=== PATIENT | male | born 1965 | race Caucasian/White ===

== ENCOUNTER 2018-04-01 03:19 | Emergency (ER) | payer OTHER ==
[~2018-04-01] VITALS: Ht 180.3 cm; Wt 90.7 kg
[2018-04-01 03:24] VITALS: BP 159/84
[2018-04-01] MEDS: HYDROcodone/APAP 5/325 MG 1 TAB TAB PO ONE (03:41)
[2018-04-01 03:47] VITALS: BP 138/81
== END 2018-04-01 03:47 | disposition home or self-care (01) ==
LOC: MED 03:19
DX: S01.01XA Laceration without foreign body of scalp, initial encounter (principal); W22.8XXA Striking against or struck by other objects, initial encounter; Y93.89 Activity, other specified; Y92.89 Other specified places as the place of occurrence of the external cause; Y99.8 Other external cause status
CPT/HCPCS: 99283

== ENCOUNTER 2021-01-08 13:55 | Emergency (ER) | payer OTHER ==
[~2021-01-08] VITALS: Ht 180.3 cm; Wt 98.0 kg
[2021-01-08 13:58] VITALS: BP 159/94
[2021-01-08] MEDS ORDERED: TRIA0.029 TP (14:18)
[2021-01-08] MEDS ORDERED: LORA10TA19 PO (14:18)
[2021-01-08 14:56] VITALS: BP 159/94
--- NOTE | 2021-01-08 14:56 | NUR ---
NO NURSING INTERVENTIONS PROVIDED
--- NOTE | 2021-01-08 14:56 | NUR ---
Patient discharged with v/s stable. Written and verbal after care instructions given and explained. Patient alert, oriented and verbalized understanding of instructions. Ambulatory with steady gait. All questions addressed prior to discharge. ID band removed. Patient advised to follow up with PMD. Rx of CLARITIN AND TRIAMCINOLONE ACETONIDE given. Patient educated on indication of medication including possible reaction and side effects. Opportunity to ask questions provided and answered.
== END 2021-01-08 14:56 | disposition home or self-care (01) ==
LOC: MED 13:55
DX: L20.9 Atopic dermatitis, unspecified (principal); Z79.899 Other long term (current) drug therapy
CPT/HCPCS: 99283